=== PATIENT | male | born 1990 | race African-American/Black ===

== ENCOUNTER 2019-10-03 10:52 | Emergency (ER) | payer SELFPAY ==
[~2019-10-03] VITALS: Ht 188 cm; Wt 102.1 kg
--- NOTE | 2019-10-03 11:00 | NUR ---
PT BIB SELF C/O L INDEX FINGER TRAUMA/AVULSION, PT IS AAOX4, NOT IN RESPIRATORY DISTRESS, V/S STABLE, KEPT RESTED AND COMFORTABLE,WILL CONTINUE TO MONITOR.
--- NOTE | 2019-10-03 11:10 | NUR ---
AT BEDSIDE FOR EVAL.
[2019-10-03] MEDS ORDERED: LIDOCAINE HCL/MPF 1% 30 ML VIAL IJ ONE (11:17)
[2019-10-03] MEDS ORDERED: LIDOCAINE HCL/PF 1% 30 ML VIAL TP ONE (11:30)
[2019-10-03] MEDS ORDERED: HYDROCODONE/APAP 5/325MG 1 EACH TABLET ONE (11:38)
[2019-10-03] MEDS ORDERED: HYDROCODONE/APAP 5/325MG 1 EACH TABLET PO ONE (12:30)
--- NOTE | 2019-10-03 12:50 | NUR ---
WOUND DRESSING DONE BY FASTENER SEWING MACHINE OPERATOR
[2019-10-03 12:58] VITALS: BP 129/88
--- NOTE | 2019-10-03 12:58 | NUR ---
Patient discharged to home in stable condition. Written and verbal after care instructions given. Patient verbalizes understanding of instruction.
== END 2019-10-03 13:00 | disposition home or self-care (01) ==
LOC: ER 10:52
DX: S68.121A Partial traumatic metacarpophalangeal amputation of left index finger, initial encounter (principal); Z60.2 Problems related to living alone; W45.8XXA Other foreign body or object entering through skin, initial encounter; Y93.89 Activity, other specified; Y92.89 Other specified places as the place of occurrence of the external cause; Y99.8 Other external cause status; Z88.6 Allergy status to analgesic agent
CPT/HCPCS: 64450; 99284; A6403; J3490 ×2

== ENCOUNTER 2019-10-05 15:36 | Emergency (ER) | payer OTHER ==
[~2019-10-05] VITALS: Ht 180.3 cm; Wt 99.8 kg
[2019-10-05 16:11] VITALS: BP 148/90
--- NOTE | 2019-10-05 16:30 | NUR ---
JOSEY JUAN AT BEDSIDE FOR EVAL.
[2019-10-05] MEDS ORDERED: LIDOCAINE 1% INJ 50 ML MDV IJ ONE (16:43)
--- NOTE | 2019-10-05 17:03 | NUR ---
WOUND DRESSING DONE BY CARPENTER FOREMAN
--- NOTE | 2019-10-05 17:03 | NUR ---
Patient discharged to home in stable condition. Written and verbal after care instructions given. Patient verbalizes understanding of instruction.
== END 2019-10-05 17:04 | disposition home or self-care (01) ==
LOC: ER 15:42
DX: S61.211D Laceration without foreign body of left index finger without damage to nail, subsequent encounter (principal); Z88.6 Allergy status to analgesic agent; Z60.2 Problems related to living alone; W26.8XXD Contact with other sharp object(s), not elsewhere classified, subsequent encounter
CPT/HCPCS: 99283; J3490

== ENCOUNTER 2021-02-08 09:38 | Emergency (ER) | payer SELFPAY ==
[~2021-02-08] VITALS: Ht 182.9 cm; Wt 99.8 kg
[2021-02-08] MEDS ORDERED: KETOROLAC TROMETHAMINE INJ 30 MG/ML VIAL ONE (09:59)
[2021-02-08] MEDS ORDERED: KETOROLAC TROMETHAMINE INJ 30 MG/ML VIAL IV ONE (10:00)
--- NOTE | 2021-02-08 10:13 | NUR ---
BIB SELF C/O R ARM INJURY S/P GLF WHILE SKATE BOARDING. PT AAOX4, VSS. RR EVEN & UNLABORED. DENIES MENJIVAR, DIZZINESS, CP, SOB, N/V AT THIS TIME. PT SEEN & EVAL'D BY DR. PEOPLES. MEDICATED FOR PAIN. WILL CONT TO MONITOR.
[2021-02-08] MEDS ORDERED: PROPOFOL 20 ML IV ONE (10:39)
--- NOTE | 2021-02-08 10:52 | NUR ---
RT FOREARM CLOSED REDUCTION UNDER CONSCIOUS SEDATION DONE, PT YNES WELL. PT'S WEARING RT ARM SUGAR TONG SPLINT. PT YNES WELL WITH GOOD CMS. WILL CONT TO MONITOR.
[2021-02-08] MEDS ORDERED: PROPOFOL 200 MG/20 ML VIAL IV ONE (11:00)
--- NOTE | 2021-02-08 11:14 | NUR ---
PT SITTING UP AAOX4, VSS. PT USING CELLPHONE, NAD NOTED AT THIS TIME. WILL CONT TO MONITOR.
[2021-02-08] MEDS ORDERED: IBUP-1953 PO (11:17)
--- NOTE | 2021-02-08 11:36 | NUR ---
Patient discharged to home in stable condition. Written and verbal after care instructions given. Patient verbalizes understanding of instruction. IV removed. Catheter intact and site benign. Pressure and 4x4 applied to site. No bleeding noted.
[2021-02-08 11:37] VITALS: BP 131/81
== END 2021-02-08 11:37 | disposition home or self-care (01) ==
LOC: ER 09:40
DX: S52.371A Galeazzi's fracture of right radius, initial encounter for closed fracture (principal); Z88.6 Allergy status to analgesic agent; Z60.2 Problems related to living alone; V00.131A Fall from skateboard, initial encounter; Y93.51 Activity, roller skating (inline) and skateboarding; Y92.89 Other specified places as the place of occurrence of the external cause; Y99.8 Other external cause status
CPT/HCPCS: 25605; 73090; 73110; 96374; 99152; 99285; J1885; J2704; G0500